=== PATIENT | male | born 1975 | race Caucasian/White ===

== ENCOUNTER → 2018-11-11 | Outpatient (CLI) | payer BC ==
--- NOTE | 2018-11-12 00:11 | MR ---
EXAMINATION TYPE: MR ankle RT wo con DATE OF EXAM: 11/11/2018 COMPARISON: None HISTORY: Vlad ankle pain Standard multiplanar, multisequence MRI departmental protocol Multiplanar, multisequence images of the right ankle were acquired. FINDINGS: There is mild ankle joint effusion. Joint spaces are fairly normal. There is plantar calcan eal spur. Achilles tendon is intact. Plantar fascia appears normal. Subtalar joint is intact. Interta rsal joint spaces are fairly normal. I see no focal bone destruction. There is no evidence of a fract ure. Medial and lateral flexor tendons of the ankle appear intact. There is some fluid around the flexor t endons. IMPRESSION: There is fluid at the ankle joint and fluid around the flexor tendons consistent with synovitis. No f racture seen. Mild plantar calcaneal spurring.
--- NOTE | 2018-11-12 00:19 | MR ---
EXAMINATION TYPE: MR ankle LT wo con DATE OF EXAM: 11/11/2018 COMPARISON: None HISTORY: Vlad ankle pain Standard multiplanar, multisequence MRI departmental protocol Multiplanar, multisequence images of the left ankle were acquired. FINDINGS: There is mild ankle joint effusion. The Achilles tendon is intact. Plantar fascia appears n ormal. Subtalar joint appears normal. The medial and lateral flexor tendons of the ankle are intact. There is small amount of fluid around the flexor tendons. Extensor tendons appear intact. I see no fr acture. Joint spaces are fairly normal. The collateral ligaments are intact. I see no focal bone dest ruction. There is no evidence of a fracture. There is mild subcutaneous edema around the ankle joint. There are varicose veins in the lower leg. IMPRESSION: Subcutaneous edema. Ankle joint effusion and fluid around the tendons consistent with synovitis. No f racture seen. Varicose veins are present..
== END | disposition home or self-care (01) ==
LOC: RADMRIMAIN 20:15
PROVIDERS: ATTEND Orthopaedic Surgery
DX: M76.61 Achilles tendinitis, right leg (principal); M76.62 Achilles tendinitis, left leg; M25.572 Pain in left ankle and joints of left foot; M79.672 Pain in left foot; M65.272 Calcific tendinitis, left ankle and foot; M79.671 Pain in right foot; M25.571 Pain in right ankle and joints of right foot

== ENCOUNTER 2019-04-30 22:18 | Emergency (ER) | payer BC ==
[2019-04-30 22:36] VITALS: PULSE 83
[2019-04-30] MEDS ORDERED: SODIUM CHLORIDE 0.9% 1,000 ML IV STA (23:06)
[2019-04-30] MEDS ORDERED: KETOROLAC 30 MG/ML 1 ML VIAL IVP STA (23:06)
[2019-04-30 23:30] LABS: Basophils # (A) 0.1 k/uL (0-0.2); Basophils % (A) 1 %; Eosinophils # (A) 0.3 k/uL (0-0.7); Eosinophils % (A) 3 %; HCT 48.8 % (39.0-53.0); HGB 15.9 gm/dL (13.0-17.5); Lymphocytes # (A) 3.3 k/uL (1.0-4.8); Lymphocytes % (A) 31 %; MCH 29.5 pg (25.0-35.0); MCHC 32.5 g/dL (31.0-37.0); MCV 90.5 fL (80.0-100.0); Mean Platelet Volume 6.9; Monocytes # (A) 0.8 k/uL (0-1.0); Monocytes % (A) 8 %; Neutrophils # (A) 5.8 k/uL (1.3-7.7); Neutrophils % (A) 55 %; Platelet Count 296 k/uL (150-450); RBC 5.39 m/uL (4.30-5.90); RDW 13.2 % (11.5-15.5); WBC 10.6 k/uL (3.8-10.6)
[2019-04-30 23:45] LABS: ALT 34 U/L (21-72); AST 26 U/L (17-59); Albumin 4.4 g/dL (3.5-5.0); Alkaline Phosphatase 69 U/L (38-126); Amylase 65 U/L (30-110); Anion Gap 8 mmol/L; Blood Urea Nitrogen 23 mg/dL (9-20); Calcium 9.8 mg/dL (8.4-10.2); Carbon Dioxide 26 mmol/L (22-30); Chloride 107 mmol/L (98-107); Glucose 139 mg/dL (74-99); Lipase 192 U/L (23-300); Potassium 4.2 mmol/L (3.5-5.1); Sodium 141 mmol/L (137-145); Total Bilirubin 0.4 mg/dL (0.2-1.3); Total Protein 7.3 g/dL (6.3-8.2)
[2019-04-30 23:48] LABS: Appearance,Urine Clear (Clear); Bacteria,Urine Rare /hpf; Bilirubin,Urine Negative (Negative); Blood,Urine Large (Negative); Budding Yeast,Urine Many /hpf; Color,Urine Yellow; Glucose,Urine (UA) Negative (Negative); Ketones,Urine Negative (Negative); Leukocyte Esterase,Urine Negative (Negative); Mucus,Urine Few /hpf; Nitrite,Urine Negative (Negative); PH, Urine 5.5 (5.0-8.0); Protein,Urine Trace (Negative); RBC,Urine >182 /hpf (0-5); Specific Gravity,Urine 1.032 (1.001-1.035); Squamous Epithelial Cell,Urine <1 /hpf (0-4); Urobilinogen,Urine <2.0 mg/dL (<2.0); WBC,Urine 4 /hpf (0-5)
--- NOTE | 2019-05-01 00:36 | CT ---
ADDENDUM - Added by Ethan Hoang M.D. on 05/01/2019 1:24 AM (-07:00) Technique should read as follows: Axial computed tomography images of the abdomen and pelvis without intravenous contrast. DLP is 1504 mGy-cm. This CT exam was performed using one or more of the following dose reduction techniques: automated exposure control, adjustment of the mA and/or kV according to patient size, and/or use of iterative reconstruction technique. EXAM: CT Abdomen and Pelvis Without Intravenous Contrast CLINICAL HISTORY: Patient presents with right sided abdominal pain. TECHNIQUE: Axial computed tomography images of the abdomen and pelvis without intravenous contrast. CTDI is 5 mGy and DLP is 1504 mGy-cm. This CT exam was performed using one or more of the following dose reduction techniques: automated exposure control, adjustment of the mA and/or kV according to patient size, and/or use of iterative reconstruction technique. COMPARISON: No relevant prior studies available. FINDINGS: Atelectasis and/or scar. Tiny hiatal hernia. Right proximal ureteral stone measuring 4-5 mm in size with very mild proximal obstructive changes and some mild asymmetric infiltration around the right kidney and proximal ureter. There is some artifact on this exam. Would question whether there are some faint nonobstructive renal calcifications, example lower pole left kidney though this could be artifactual. Cholecystectomy. No evidence for acute pancreatitis. No appendicitis. No evidence for acute appendicitis or other acute process. Evaluation of viscera is limited without contrast. Suspect at least one low-density left renal lesion. Diverticulosis without diverticulitis. Osseous degenerative changes. IMPRESSION: Right proximal ureteral stone measuring 4-5 mm in size with very mild proximal obstructive changes and some mild asymmetric infiltration around the right kidney and proximal ureter.
[2019-05-01] MEDS ORDERED: ONDANSETRON 4 MG ODT STARTER PACK 2 TAB BTL PO STA (00:39)
[2019-05-01] MEDS ORDERED: traMADol 50 MG STARTER PACK 3 TAB BTL PO STA (00:39)
[2019-05-01] MEDS ORDERED: IBUPROFEN 600 MG STARTER PACK 4 TAB BTL PO STA (00:39)
[2019-05-01] MEDS ORDERED: TAMSULOSIN 0.4 MG CAP.ER.24H PO STA (00:39)
--- NOTE | 2019-05-01 00:42 | ED ---
Abdominal Pain HPI - General Chief Complaint: Abdominal Pain Stated Complaint: Abd pain, back pain Time Seen by Provider: 04/30/19 22:55 Source: patient Mode of arrival: ambulatory Limitations: no limitations - History of Present Illness Initial Comments: 43-year-old male patient presents to the emergency department today for evaluation of right flank pain. Patient states this started a couple of hours ago. Patient states it was a sharp sudden pain to the right sided abdomen that then began to radiate to the back. Patient denies any history of similar symptoms. Denies any cough or shortness of breath. Denies any hematuria, dysuria, urinary frequency, urinary urgency. States he is not nauseated. States he has normal bowel movements with no diarrhea or constipation. Denies any fever or chills. States he has had cholecystectomy in the past and the pain feels similar to when he had cholecystitis. Has not taken any medication for his symptoms. Patient denies any recent rash, shortness breath, chest pain, numbness, tingling, dizziness, weakness, headache, visual changes, or any other complaints. - Related Data Home Medications Medication Instructions Recorded Confirmed Ibuprofen [Advil] 200 mg PO Q8H 04/30/19 04/30/19 Multivitamins, Thera [Multivitamin 1 tab PO DAILY 04/30/19 04/30/19 (formulary)] Previous Rx's Medication Instructions Recorded Hydrocodone/Acetaminophen [[place] 1 tab PO Q6HR PRN #12 tab 05/01/19 5-325] Ibuprofen [Motrin] 600 mg PO Q8HR PRN #30 tab 05/01/19 Ondansetron [Zofran ODT] 4 mg PO Q8HR PRN #10 tab 05/01/19 Tamsulosin HCl [Flomax] 0.4 mg PO DAILY #7 cap 05/01/19 Allergies Allergy/AdvReac Type Severity Reaction Status Date / Time codeine AdvReac Unknown Verified 04/30/19 23:08 Childhood Review of Systems ROS Statement: Those systems with pertinent positive or pertinent negative responses have been documented in the HPI. ROS Other: All systems not noted in ROS Statement are negative. Past Medical History Past Medical History: No Reported History History of Any Multi-Drug Resistant Organisms: None Reported Past Surgical History: Cholecystectomy, Orthopedic Surgery Additional Past Surgical History / Comment(s): leg sx, undescended testicle Past Psychological History: No Psychological Hx Reported Smoking Status: Former smoker Past Alcohol Use History: Rare Past Drug Use History: None Reported General Exam Limitations: no limitations General appearance: alert, in no apparent distress, other (This is a well-developed, well-nourished adult male patient in no acute distress. Vital signs upon presentation are temperature 98.2F, pulse 83, respirations 20, blood pressure 161/104, pulse ox 93% on room air.) Eye exam: Present: normal appearance, PERRL, EOMI. Absent: scleral icterus, conjunctival injection, periorbital swelling ENT exam: Present: normal exam, normal oropharynx, mucous membranes moist Respiratory exam: Present: normal lung sounds bilaterally. Absent: respiratory distress, wheezes, rales, rhonchi, stridor Cardiovascular Exam: Present: regular rate, normal rhythm, normal heart sounds. Absent: systolic murmur, diastolic murmur, rubs, gallop, clicks GI/Abdominal exam: Present: soft, normal bowel sounds. Absent: distended, tenderness, guarding, rebound, rigid Back exam: Present: CVA tenderness (R). Absent: CVA tenderness (L) Neurological exam: Present: alert, oriented X3, CN II-XII intact Psychiatric exam: Present: normal affect, normal mood Skin exam: Present: warm, dry, intact, normal color. Absent: rash Course Vital Signs 04/30/19 05/01/19 22:33 01:58 Temperature 98.2 F 98.4 F Pulse Rate 83 83 Respiratory 20 18 Rate Blood Pressure 161/104 134/82 O2 Sat by Pulse 93 L 96 Oximetry Medical Decision Making - Medical Decision Making 43-year-old male patient presents to the emergency department today for evaluation of right flank pain. Physical examination did reveal some mild right CVA tenderness. Minimal abdominal tenderness. Labs reviewed obtained and showed greater than 182 red blood cells in the urine. Normal renal function. Normal white blood cell count. CT abdomen and pelvis was obtained and did show 4-5 mm stone to the right ureter. I did discuss findings and results with the patient. Symptoms are consistent with kidney stone. He'll be given prescription for Flomax, pain medication, nausea medication. He is instructed to follow-up with urologist for further evaluation. Return parameters were discussed in detail. He verbalizes understanding and agrees this plan. - Lab Data Result diagrams: 04/30/19 22:54 04/30/19 22:54 Lab Results 04/30/19 04/30/19 04/30/19 Range/Units 22:54 22:54 22:54 WBC 10.6 (3.8-10.6) k/uL RBC 5.39 (4.30-5.90) m/uL Hgb 15.9 (13.0-17.5) gm/dL Hct 48.8 (39.0-53.0) % MCV 90.5 (80.0-100.0) fL MCH 29.5 (25.0-35.0) pg MCHC 32.5 (31.0-37.0) g/dL RDW 13.2 (11.5-15.5) % Plt Count 296 (150-450) k/uL Neutrophils % 55 % Lymphocytes % 31 % Monocytes % 8 % Eosinophils % 3 % Basophils % 1 % Neutrophils # 5.8 (1.3-7.7) k/uL Lymphocytes # 3.3 (1.0-4.8) k/uL Monocytes # 0.8 (0-1.0) k/uL Eosinophils # 0.3 (0-0.7) k/uL Basophils # 0.1 (0-0.2) k/uL Sodium 141 (137-145) mmol/L Potassium 4.2 (3.5-5.1) mmol/L Chloride 107 (98-107) mmol/L Carbon Dioxide 26 (22-30) mmol/L Anion Gap 8 mmol/L BUN 23 H (9-20) mg/dL Creatinine 0.86 (0.66-1.25) mg/dL Est GFR (CKD-EPI)AfAm >90 (>60 ml/min/1.73 sqM) Est GFR (CKD-EPI)NonAf >90 (>60 ml/min/1.73 sqM) Glucose 139 H (74-99) mg/dL Calcium 9.8 (8.4-10.2) mg/dL Total Bilirubin 0.4 (0.2-1.3) mg/dL AST 26 (17-59) U/L ALT 34 (21-72) U/L Alkaline Phosphatase 69 (38-126) U/L Total Protein 7.3 (6.3-8.2) g/dL Albumin 4.4 (3.5-5.0) g/dL Amylase 65 (30-110) U/L Lipase 192 (23-300) U/L Urine Color Yellow Urine Appearance Clear (Clear) Urine pH 5.5 (5.0-8.0) Ur Specific [place] 1.032 (1.001-1.035) Urine Protein Trace H (Negative) Urine Glucose (UA) Negative (Negative) Urine Ketones Negative (Negative) Urine Blood Large H (Negative) Urine Nitrite Negative (Negative) Urine Bilirubin Negative (Negative) Urine Urobilinogen <2.0 (<2.0) mg/dL Ur Leukocyte Esterase Negative (Negative) Urine RBC >182 H (0-5) /hpf Urine WBC 4 (0-5) /hpf Ur Squamous Epith Cells <1 (0-4) /hpf Urine Bacteria Rare H (None) /hpf Urine Mucus Few H (None) /hpf Urine Yeast (Budding) Many H (None) /hpf - Radiology Data Radiology results: report reviewed, image reviewed CT abdomen and pelvis without contrast was obtained. Report was reviewed in its entirety. Impression by Dr. Hoang shows right proximal ureteral stone measuring 4-5 mm in size with very mild proximal obstructive changes and some mild asymmetric infiltration on the right kidney and proximal ureter. Disposition Clinical Impression: Kidney stone on right side Disposition: HOME SELF-CARE Condition: Good Instructions (If sedation given, give patient instructions): Kidney Stones (ED), How to Strain Your Urine (ED) Additional Instructions: Increase fluids, especially water. Take medications as directed. Follow-up with urologist for further evaluation. Follow-up with her primary care physician for recheck in 1-2 days. Return to the emergency department immediately for any new, worsening, or concerning symptoms. Prescriptions: Tamsulosin HCl [Flomax] 0.4 mg PO DAILY #7 cap Ibuprofen [Motrin] 600 mg PO Q8HR PRN #30 tab PRN Reason: Pain Hydrocodone/Acetaminophen [[place] 5-325] 1 tab PO Q6HR PRN #12 tab PRN Reason: Pain Ondansetron [Zofran ODT] 4 mg PO Q8HR PRN #10 tab PRN Reason: Nausea Is patient prescribed a controlled substance at d/c from ED?: Yes When asked, does pt state using other controlled substances?: No If prescribed controlled substance>3 days was MAPS reviewed?: Prescribed <3 Days If opioid is for acute pain is fill amount 7 days or less?: Yes If Rx opioid, was Start Talking consent form obtained?: Yes Referrals: Vadim Mckeon MD [Primary Care Provider] - 1-2 days Freddie Mcwilliams MD [STAFF PHYSICIAN] - 1-2 days Time of Disposition: 00:41
[2019-05-01 02:00] VITALS: BP 134/82; RESP 18; TEMP 98.4
== END 2019-05-01 02:06 | disposition home or self-care (01) ==
LOC: EC 22:18
DX: N20.2 Calculus of kidney with calculus of ureter (principal); Z87.891 Personal history of nicotine dependence; Z79.1 Long term (current) use of non-steroidal anti-inflammatories (NSAID); Z88.5 Allergy status to narcotic agent; Z90.49 Acquired absence of other specified parts of digestive tract
CPT/HCPCS: 36415; 80053; 82150; 83690; 85025; 81001; 99284; 96374; 96361 ×2; J1885; 74176

== ENCOUNTER → 2020-10-10 | Outpatient (CLI) | payer BC ==
--- NOTE | 2020-10-10 15:14 | US ---
EXAMINATION TYPE: US kidneys/renal and bladder DATE OF EXAM: 10/10/2020 COMPARISON: ct 04/30/2019 CLINICAL HISTORY: N20.0 renal calculus. Right flank pain EXAM MEASUREMENTS: Right Kidney: 11.0 x 6.3 x 6.1 cm Left Kidney: 13.7 x 6.1 x 5.7 cm Right Kidney: No hydronephrosis or masses seen Left Kidney: No hydronephrosis or masses seen Bladder: wnl Bilateral Jets seen: Yes There is no evidence for hydronephrosis at this point in time. No nephrolithiasis is seen. No lulu s are identified. The urinary bladder is anechoic. Bilateral ureteral jets are seen. IMPRESSION: Unremarkable study
== END | disposition home or self-care (01) ==
LOC: RADUSWWP 14:48
PROVIDERS: ATTEND Internal Medicine Geriatric Medicine
DX: N20.0 Calculus of kidney (principal)
CPT/HCPCS: 76770

== ENCOUNTER → 2021-02-07 | Outpatient (CLI) | payer BC ==
--- NOTE | 2021-02-07 13:14 | XR ---
EXAMINATION TYPE: XR lumbar spine 2 or 3V DATE OF EXAM: 02/07/2021 CLINICAL HISTORY: Chronic pain. TECHNIQUE: Frontal and lateral images of the lumbar spine are obtained. COMPARISON: CT abdomen and pelvis April 30, 2019 FINDINGS: There are 5 lumbar type vertebral bodies redemonstrated. There is persistent dextroconvex scoliosis centered at the lumbosacral junction. Persistent moderate to severe disc space narrowing wi th endplate sclerosis L5-S1 level. Persistent mild disc space narrowing L4-L5 level. Vertebral body h eights are maintained. Facet arthropathy lower lumbar spine redemonstrated. Overlying cholecystectomy clips are again seen. IMPRESSION: As above
--- NOTE | 2021-02-07 13:15 | XR ---
EXAMINATION TYPE: XR thoracic spine complete DATE OF EXAM: 02/07/2021 CLINICAL HISTORY: Chronic worsening back pain. TECHNIQUE: Frontal, lateral, and swimmer's view of thoracic spine are obtained. COMPARISON: None. FINDINGS: Thoracic spine show slight dextro convex scoliotic curvature centered lower thoracic spine. There is exaggerated thoracic kyphosis centered mid thoracic spine. Vertebral body heights are main tained. Mild multilevel disc space narrowing. Mild multilevel anterior spurring greatest mid to lower thoracic levels. Visualized ribs are intact bilaterally. Overlying Cholecystectomy clips noted. IMPRESSION: As above.
== END ==
LOC: RADXRMAIN 12:21
PROVIDERS: ATTEND Internal Medicine Geriatric Medicine
DX: M99.72 Connective tissue and disc stenosis of intervertebral foramina of thoracic region (principal); M99.73 Connective tissue and disc stenosis of intervertebral foramina of lumbar region; G89.29 Other chronic pain
CPT/HCPCS: 72072; 72100

== ENCOUNTER → 2021-02-20 | Outpatient (CLI) | payer BC ==
--- NOTE | 2021-02-20 16:14 | MR ---
EXAMINATION TYPE: MR lumbar spine wo con DATE OF EXAM: 02/20/2021 COMPARISON: Lumbar spine x-ray February 07, 2021. CT abdomen and pelvis April 30, 2019 HISTORY: Lower back pain into both buttocks 6months to a year TECHNIQUE: Multiplanar, multisequence imaging of the lumbar spine is performed without IV contrast. FINDINGS: There is slight dextroconvex scoliotic curvature centered near the lumbosacral junction red emonstrated. Sagittal images of the lumbar spine show vertebral body heights and alignment to remain satisfactory. There is disc desiccation L4-L5 and L5-S1 levels. Mild disc space narrowing L4-L5 level . Moderate to severe disc space narrowing with vacuum disc phenomenon L5-S1 level. The conus medulla ris is somewhat low in position ending mid L2 level. No abnormal cord signal. No suspicious clumping of lumbosacral nerve roots. Bone marrow signal intensity maintained. Axial images at T12-L1 level show mild facet degenerative changes bilaterally. Axial images at L1-L2 level appear within normal limits. Axial images at L2-L3 level show mild right greater than left facet degenerative changes. Axial images at L3-L4 level mild facet degenerative changes bilaterally. Axial images at L4-L5 level moderate facet degenerative changes and ligamentum flavum hypertrophy. Th ere is right paracentral disc extrusion with some superior extension and posterior annular tear. This mildly effaces the anterior thecal sac sagittal image 10 and axial image 11. Patent bilateral neural foramina. Axial images at the L5-S1 level show mild/moderate facet degenerative changes and ligamentum flavum h ypertrophy. There is moderate broad disc bulge. Spinal canal is preserved. There is [id number] bilateral neural foraminal narrowing. Paraspinal muscle bulk is maintained. IMPRESSION: Multilevel degenerative changes greatest in the lower lumbar spine as detailed above
== END | disposition home or self-care (01) ==
LOC: RADMRIMAIN 07:57
PROVIDERS: ATTEND Nurse Practitioner Family
DX: M47.816 Spondylosis without myelopathy or radiculopathy, lumbar region (principal)
CPT/HCPCS: 72148

== ENCOUNTER → 2021-05-30 | Outpatient (CLI) | payer BC ==
--- NOTE | 2021-05-30 14:51 | US ---
EXAMINATION TYPE: US carotid duplex BILAT DATE OF EXAM: 05/30/2021 COMPARISON: NONE CLINICAL HISTORY: R42 Dizziness. Pt states dizziness EXAM MEASUREMENTS: RIGHT: Peak Systolic Velocity (PSV) cm/sec ----- Right CCA: 87.5 ----- Right ICA: 74.7 ----- Right ECA: 67.7 ICA/CCA ratio: 0.9 RIGHT: End Diastole cm/sec ----- Right CCA: 19.3 ----- Right ICA: 34.5 ----- Right ECA: 16.2 LEFT: Peak Systolic Velocity (PSV) cm/sec ----- Left CCA: 84.4 ----- Left ICA: 75.4 ----- Left ECA: 90.1 ICA/CCA ratio: 0.9 LEFT: End Diastole cm/sec ----- Left CCA: 29.3 ----- Left ICA: 30.3 ----- Left ECA: 20.2 VERTEBRALS (direction of flow): Right Vertebral: Antegrade Left Vertebral: Antegrade Rhythm: Normal No significant stenosis seen IMPRESSION: 1. No evidence of hemodynamically significant stenosis of the bilateral internal carotid arteries. Criteria for Assigning % of Stenosis / Diameter reduction (Estimation based on the indirect measurements of the internal carotid artery velocities (ICA PSV). 1. Normal (no stenosis)=ICA PSV < 125 cm/s: ratio < 2.0: ICA EDV<40 cm/s. 2. Less than 50% stenosis=ICA PSV < 125 cm/s: ratio < 2.0: ICA EDV<40 cm/s. 3. 50 to 69% stenosis=ICA PSV of 125 to 230 cm/s: ration 2.0 ? 4.0: ICA EDV 40-100 cm/s. 4. Greater than 70% stenosis to near occlusion= ICA PSV > 230 cm/s: ratio > 4.0: ICA EDV > 100 cm/s. 5. Near occlusion= ICA PSV velocities may be low or undetectable: variable ratio and ICA EDV. 6. Total occlusion=unable to detect flow.
== END | disposition home or self-care (01) ==
LOC: RADUSWWP 13:31
PROVIDERS: ATTEND Family Medicine
DX: R42 Dizziness and giddiness (principal)
CPT/HCPCS: 93880

== ENCOUNTER 2023-07-05 11:44 | Day surgery (SDC) | payer BC ==
[~2023-07-05 11:44] MED LIST: LACTATED RINGERS 1,000 ML IV SCH; LIDOCAINE 1% (10MG/ML) FOR IV START INTRADERMA PRN; ONDANSETRON 4 MG/2 ML VIAL IVP PRN
[2023-07-05 12:18] VITALS: TEMP 97.6
[2023-07-05 12:27] LABS: Glucose,Whole Blood 95 mg/dL (70-110)
[2023-07-05] MEDS ORDERED: LIDOCAINE 2% INJ 20 MG/ML (2 ML VIAL) ONE (12:47)
[2023-07-05] MEDS ORDERED: PROPOFOL 10 MG/ML 20 ML VIAL IV ONE (12:47)
--- NOTE | 2023-07-05 13:07 | P.PCN ---
Date of Procedure: 07/05/23 Procedure(s) Performed: BRIEF HISTORY: Patient is a 47-year-old pleasant white male scheduled for an elective colonoscopy as a part of screening for colon cancer. PROCEDURE PERFORMED: Colonoscopy with snare polypectomy. PREOPERATIVE DIAGNOSIS: Screening for colon cancer. IV sedation per Anesthesia. PROCEDURE: After informed consent was obtained, the patient, was brought into the endoscopy unit. IV sedation was administered by Anesthesia under continuous monitoring. Digital rectal examination was normal. Initially the Olympus CF-160 flexible video colonoscope was then inserted in the rectum, gradually advanced into the cecum without any difficulty. Careful examination was performed as the scope was gradually being withdrawn. Ileocecal valve and the appendiceal orifice were visualized and appeared normal. Prep was GERD. Mucosa of the cecum, ascending colon, appeared normal. In the hepatic flexure there was a 6 mm sessile polyp removed by snare polypectomy. In the transverse colon there was another 5 mm polyp removed by snare polypectomy. Rest of the transverse colon, descending colon, sigmoid colon, and rectum appeared normal. Retroflexion was performed in the rectum and no lesions were seen. The patient tolerated the procedure well. IMPRESSION: 6 mm hepatic flexure polyp status post-polypectomy 5 mm transverse colon polyp status post polypectomy RECOMMENDATIONS: Findings of this examination were discussed with the patient as well as his family. He was advised to follow with the biopsy results. If the biopsy result adenoma he can have a repeat colonoscopy in 5 years.
[2023-07-05 13:17] VITALS: RESP 16
[2023-07-05 13:26] VITALS: BP 126/84; PULSE 82
== END 2023-07-05 13:49 | disposition home or self-care (01) ==
LOC: ORWHC2ENDO 11:44
PROVIDERS: ATTEND Internal Medicine Gastroenterology
DX: Z12.11 Encounter for screening for malignant neoplasm of colon (principal); D12.3 Benign neoplasm of transverse colon; I10 Essential (primary) hypertension; E78.5 Hyperlipidemia, unspecified; M19.90 Unspecified osteoarthritis, unspecified site; Z98.890 Other specified postprocedural states; Z88.5 Allergy status to narcotic agent; Z79.899 Other long term (current) drug therapy
CPT/HCPCS: 88305; 45385; J2704; J2001